=== PATIENT | male | born 1980 | race Caucasian/White ===

== ENCOUNTER 2025-02-21 19:39 | Emergency (ER) | payer MEDICARE, MEDICAID, SELFPAY ==
[2025-02-21 19:39] VITALS: BP 182/79; PULSE 83; RESP 18; TEMP 36.8; O2SAT 97; BMI 35.2
--- NOTE | 2025-02-21 20:06 | XR_ITS ---
PROCEDURE INFORMATION: Exam: XR Chest Exam date and time: 02/21/2025 8:45 PM Age: 45 years old Clinical indication: Shortness of breath; Additional info: Shortness of air/cp TECHNIQUE: Imaging protocol: Radiologic exam of the chest. Views: 1 view. COMPARISON: No relevant prior studies available. FINDINGS: Lungs: See Pleural spaces finding. Pleural spaces: Low lung volumes are present without pleural effusions or consolidations that project above the diaphragm. Heart/Mediastinum: Unremarkable. No cardiomegaly. Bones/joints: Unremarkable. IMPRESSION: No acute findings.
--- NOTE | 2025-02-21 20:07 | CT_ITS ---
PROCEDURE INFORMATION: Exam: CT Abdomen And Pelvis With Contrast Exam date and time: 02/21/2025 10:20 PM Age: 45 years old Clinical indication: Abdominal pain; Additional info: Abdominal pain, nausea, left sacral ulcer TECHNIQUE: Imaging protocol: Computed tomography of the abdomen and pelvis with contrast. Radiation optimization: All CT scans at this facility use at least one of these dose optimization techniques: automated exposure control; mA and/or kV adjustment per patient size (includes targeted exams where dose is matched to clinical indication); or iterative reconstruction. Contrast material: ISOVUE; Contrast volume: 75 ml; Contrast route: IV; COMPARISON: CR XR CHEST PORTABLE 02/21/2025 8:45 PM FINDINGS: Liver: Diffuse hypoattenuation of the liver compatible with mild hepatic steatosis. Gallbladder and biliary ducts: The gallbladder is contracted but otherwise unremarkable. Pancreas: Normal. No ductal dilation. Spleen: Multiple benign-appearing calcific densities of the spleen. Adrenal glands: Normal. No mass. Kidneys and ureters: Normal. No hydronephrosis. Stomach and bowel: Unremarkable. No obstruction. No mucosal thickening. Appendix: No evidence of appendicitis. Intraperitoneal space: Unremarkable. No free air. No significant fluid collection. Vasculature: Unremarkable. No abdominal aortic aneurysm. Lymph nodes: Unremarkable. No enlarged lymph nodes. Urinary bladder: Unremarkable as visualized. Reproductive: Unremarkable as visualized. Bones/joints: Postsurgical changes of the left hip compatible with IM nail and cannulated screw fixation of a healed femoral neck fracture. Soft tissues: Left gluteal soft tissue defect with postcontrast enhancement without rim enhancing collection to suggest abscess. IMPRESSION: Left gluteal soft tissue defect with postcontrast enhancement without rim enhancing collection to suggest abscess.
--- NOTE | 2025-02-21 20:09 | ED_ITS ---
<Statement entered by Lynne Mckeon DO - 02/23/25 12:39> I was consulted by the IRINA, and we discussed the complexity of problems being addressed. I approve the treatment and management plan for this patient's care in the emergency department, thus performing a substantial portion of the medical decision making. Lynne Mckeon DO Discharge Plan Disposition Patient Disposition: Home, Self-Care Condition: Good Prescriptions Prescriptions: New sulfamethoxazole-trimethoprim [Bactrim DS] 800-160 mg tablet 1 tab PO BID 7 Days Qty: 14 0RF amoxicillin-pot clavulanate 875-125 mg tablet 1 tab PO BID 7 Days Qty: 14 0RF Referrals Follow up/Referrals: Abiola You APRN [Primary Care Provider, Medical] - See instructions Activity Restrictions/Add. Instructions Additional Instructions/Restrictions: Take the antibiotics as prescribed. Follow-up with your PCP next week. Return to the emergency department for any worsening signs of infection including significant redness drainage or development of fevers. Your PCP can help you establish wound care outpatient. Clinical Impressions Clinical Impression: Sacral wound Print Language Print Language: Citizen Of [place] Discharge ED Provider: Lynne Mckeon General Adult HPI <CHALO Bella - Last Filed: 02/21/25 22:18> General Chief complaint: PAIN Stated complaint: pain Time Seen by Provider: 02/21/25 19:55 Mode of Arrival: Ambulatory Source of Information: Patient Description of Symptoms (Recalled from ER Triage Doc. by RN): patient presents to the ed for a large sacrum wound that he believes is making him septic. patient also complains of chest pain and abdominal pain. paitnet states he noticed the wound on how backside a month ago and popped it and thought that was the end of it but it is a very deep wound and draining. patient states his chest pain is right sided, doesnt radiate anywhere and rates it 8/10. his abdiminal pain is all over and rates it 8/10. patinet states hes diabetic and has prescribed meds but doesnt take any of them, only his prescribed methadone. History of Present Illness HPI narrative: 45-year-old male presents the emergency department accompanied by significant other for numerous symptomatology/complaints, patient states around 2 weeks ago , his left sacral acute decubitus ulcer that has been ongoing for the last 2 months, has had some worsening pain that radiates into his back and flank, not rating to his abdomen, endorses nausea and vomiting, endorses chest pain that started yesterday, and the abdominal pain started yesterday as well, patient admits to subjective fever chills, denies any overt shortness of breath, denies any constipation diarrhea urinary type symptomatology, denies any melena hematochezia hematemesis or hemoptysis, patient is a current a smoker, denies any alcohol use, prior history of intravenous drug use, 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 , yesterday patient tells me it was my birthday , patient is a very poor historian and so his family ember at the bedside, patient tells me he is a type II diabetic insulin-dependent but does not take any of his medications, 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 Initial triage vitals are unremarkable. Please note that above description of symptoms, in this electronic medical record under categorization of recalled from ER triage doctor by RN are reflective of an initial nursing assessment, however, is not reflective of my full history and physical exam that was personally taken and clarified. Consequentially, this preceding description of symptoms, which may include the patient's categorized chief complaint in the EMR, do not reflect my personal clinical impression, and the ultimate description of history of present illness and patient stated complaints should be deferred to this section of the note. Unless stated otherwise or congruent with this section of the note, additional signs, symptoms, or incongruence should be interpreted as inaccurate with my clinical impression. Onset (ago): week(s) Related Data Previous Rx's ?Medication ?Instructions ?Recorded amoxicillin 875 mg-potassium 1 tab PO BID 7 days #14 t abs 02/21/25 clavulanate 125 mg tablet sulfamethoxazole 800 1 tab PO BID 7 days #14 tabs 02/21/25 mg-trimethoprim 160 mg tablet (Bactrim DS) Allergies Allergy/AdvReac Type Severity Reaction Status Date / Time No Known Allergies Allergy Verified 02/21/25 20:22 PFSH <CHALO Bella - Last Filed: 02/21/25 22:18> [facility] Disclaimer: The information contained in this section may have been updated after the patient was seen, as this information can be updated by other users. Social History (Updated 02/21/25 @ 22:18 by CHALO Bella) Smoking Status: Current every day smoker alcohol intake: never current occupational status: other Travel in the last 8 weeks?: None Have you lived/traveled outside US in past 30 days?: No Contact w/someone who lives/traveled outside US past 30 days?: No Exposure to someone with infectious disease in past 14 days?: No Do you have a fever (greater than 100.4 F or 38 C)?: No Have you tested positive for COVID-19?: No Exposed to someone with COVID-19 in past 14 days?: No Do you have a sore throat?: No Do you have a cough?: No Do you have any weakness?: No Do you have any diarrhea?: No Are you experiencing any unusual bleeding?: No Do you have any muscle aches/pain?: No Do you have any abdominal pain?: No Are you experiencing loss of taste or smell?: No <CHALO Bella - Last Filed: 02/21/25 22:18> ROS Obtained: Yes All systems reviewed & no additional complaints except as documented Physical Exam <CHALO Bella - Last Filed: 02/21/25 22:18> General General appearance: alert and in no apparent distress Head Head exam: atraumatic and normocephalic Eye Eye exam: Present PERRL and EOMI ENT ENT exam: Present mucous membranes moist Neck Neck exam: Present normal inspection Chest Chest inspection: Present normal inspection and symmetric chest wall rise Respiratory Respiratory exam: Present normal lung sounds bilaterally; Absent respiratory distress Cardiovascular Cardiovascular exam: Present regular rate and normal rhythm Abdominal Exam Abdominal exam: Present soft and tenderness; Absent guarding, rebound or rigidity Abdominal tenderness: Present diffuse Extremities Exam Extremities exam: Present normal inspection Neurological Exam Neurological exam: Present alert and oriented X3 Psychiatric Psychiatric exam: Present normal affect Skin Skin exam: Present warm, dry and other (Patient has chronic diabetic wounds/ulcers of his bilateral pretibial regions with erythema some evidence of wound dehiscence but no obvious active drainage, patient has some erythema, some nonpurulent drainage of his sacral decubitus ulcer that is approximately, stage III or IV, 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 Screening: Per USPSTF and CDC recommendations, given the prevalence of disease in our region, it is our hospital?s policy to screen for HIV and viral Hepatitis for all patients aged 18 and over and those with ongoing risk factors. Aleksander Inquiry Pt receiving controlled substance: No Aleksander was queried for this patient: No Vital Signs: 02/21/25 19:39 02/21/25 20:48 02/21/25 21:00 Temperature 98.2 F Temperature Source Oral Pulse Rate 68 Pulse Rate [Right Radial] 83 Respiratory Rate 18 18 16 Blood Pressure Blood Pressure [Right Arm] 182/79 H Blood Pressure Mean Blood Pressure Mean [Right Arm] 113 Blood Pressure Source Blood Pressure Source [Right Arm] Automatic Cuff Blood Pressure Position Blood Pressure Position [Right Arm] Sitting 02 Sat by Pulse Oximetry 97 91 L Oxygen Delivery Method Room Air 02/21/25 21:00 02/21/25 23:33 Temperature 98.3 F Temperature Source Oral Pulse Rate 71 Pulse Rate [Right Radial] Respiratory Rate 17 Blood Pressure 147/69 H 128/93 H Blood Pressure [Right Arm] Blood Pressure Mean 84 Blood Pressure Mean [Right Arm] Blood Pressure Source Automatic Cuff Blood Pressure Source [Right Arm] Blood Pressure Position Sitting Blood Pressure Position [Right Arm] 02 Sat by Pulse Oximetry Oxygen Delivery Method Room Air Lab Data Lab results reviewed: Yes I reviewed the patient's lab results. Lab Results 02/21/25 20:57: WBC 6.4, RBC 4.41 L, Hgb 10.1 L, Hct 32.2 L, MCV 73.0 L, MCH 22.9 L, MCHC 31.4 L, RDW 14.2, Plt Count 366, MPV 9.8, Neut % (Auto) 71.3, Lymph % (Auto) 20.6, [place] % (Auto) 5.2, Eos % (Auto) 1.9, Baso % (Auto) 0.5, Neut # (Auto) 4.5, Lymph # (Auto) 1.3, [place] # (Auto) 0.3, Eos # (Auto) 0.1, Baso # (Auto) 0.0, Sodium 134 L, Potassium 4.5, Chloride 97 L, Carbon Dioxide 30, Anion Gap 11.5, BUN 20, Creatinine 1.30 H, Estimated Creat Clear 115, Estimated GFR 60, Est GFR ( Amer) 73, Glucose 338 H, Lactate 2.3 H, Calcium 8.4, Total Bilirubin 0.2, AST 23, ALT 20, Alkaline Phosphatase 173 H, Total Creatine Kinase 43 L, Troponin I < 0.01, NT-Pro-B Natriuret Pep 857 H, Total Protein 7.6, Albumin 3.8, Globulin 3.8 H, Albumin/Globulin Ratio 1.0 L 02/21/25 21:05: VBG pH 7.32, VBG pCO2 52.7 H, VBG pO2 45.7 H, VBG HCO3 26.8, VBG Total CO2 28.4 H, VBG O2 Saturation 80.4 H, VBG Base Excess 0.8, VBG Lactic Acid 2.5 H 02/21/25 20:57 02/21/25 20:57 Orders (Tests/Meds): ED MEDICATIONS Discontinued Medications Generic Name Dose Route Start Last Admin Trade Name Freq PRN Reason Stop Dose Admin Amoxicillin/Clavulanate Potassium 1 each 02/21/25 23:18 02/21/25 23:31 Amoxicillin/Clavulanate Potassium 875/125mg Tablet PO 02/21/25 23:19 1 each ONCE ONE Administration Iopamidol 75 ml 02/21/25 22:23 02/21/25 22:24 Iopamidol-370 (76%);100ml Bottle IV 02/21/25 22:24 75 ml ONCE ONE Administration Morphine Sulfate 2 mg 02/21/25 20:18 02/21/25 20:52 Morphine 2mg/Ml Syringe IV 02/21/25 20:19 2 mg ONCE ONE Administration Ondansetron HCl 4 mg 02/21/25 20:18 02/21/25 20:52 Ondansetron 4mg/2ml Vial IV 02/21/25 20:19 4 mg ONCE ONE Administration Sodium Chloride 10 ml 02/21/25 22:23 02/21/25 22:24 Sodium Chloride 0.9% 10ml Syr (Rad Only) IV 03/23/25 22:22 10 ml NEEDED PRN Administration Maintain IV Site Trimethoprim/Sulfamethoxazole 1 each 02/21/25 23:18 02/21/25 23:31 Sulfa/Trimethoprim 1 Tablet PO 02/21/25 23:19 1 each ONCE ONE Administration ORDERS Category Date Time Status CT abdomen pelvis w con Stat Cat Scan 02/21/25 20:07 Completed XR chest portable Stat Exams 02/21/25 20:06 Completed CK [Creatine Kinase] Stat Lab 02/21/25 20:57 Completed Complete Blood Count Auto Diff Stat Lab 02/21/25 20:57 Completed Comprehensive Metabolic Panel Stat Lab 02/21/25 20:57 Completed Lactic Acid Stat Lab 02/21/25 20:57 Completed NT Pro Brain Natriuretic Pep. Stat Lab 02/21/25 20:57 Completed Troponin I Stat Lab 02/21/25 20:57 Completed Blood Culture Stat Micro 02/21/25 21:10 Results VBG [Venous Blood Gas] Stat RT 02/21/25 21:05 Completed Medical Decision Narrative: 45-year-old male presents to the emergency department with sacral pain abdominal pain and chest pain, see HPI for detailed past medical history, differential diagnose include but not limited to, pressure ulcer, NSTI, cellulitis, osteomyelitis, colitis, fistula, ileitis, lymphedema, cardiac arrhythmia, electro disturbance, ACS, pneumonia, diabetic ulcer among others. . Will obtain basic laboratory studies, EKG, chest x-ray, CT ab pelvis with contrast, creatinine kinase level, blood cultures, lactic acid and proBNP troponin, will give 2 mg IV morphine and 4 mg IV Zofran for pain and nausea. CBC is notable for hemoglobin of 10.1, hematocrit 32.2, MCV is decreased 73 CMP is notable for creatinine 1.3, hyperglycemia at 338, lactic acidosis that is minimal at 2.3 ALP is elevated 173. I reviewed the patient's chest x-ray along with corresponding radiologic report, no acute findings. VBG is notable for pCO2 elevation at 52.7, venous lactic elevation at 2.5, bicarb within normal limits. Troponin is less than 0.01, I discussed this patient's case with the attending physician Dr. Mckeon, at shift change, she will be assuming the remainder of the patient's care/workup, disposition is pending CT abdomen pelvis radiology report and clinical reassessment. <Lynne Mckeon, DO - Last Filed: 02/23/25 12:39> Vital Signs: 02/21/25 19:39 02/21/25 20:48 02/21/25 21:00 Temperature 98.2 F Temperature Source Oral Pulse Rate 68 Pulse Rate [Right Radial] 83 Respiratory Rate 18 18 16 Blood Pressure Blood Pressure [Right Arm] 182/79 H Blood Pressure Mean Blood Pressure Mean [Right Arm] 113 Blood Pressure Source Blood Pressure Source [Right Arm] Automatic Cuff Blood Pressure Position Blood Pressure Position [Right Arm] Sitting 02 Sat by Pulse Oximetry 97 91 L Oxygen Delivery Method Room Air 02/21/25 21:00 02/21/25 23:33 Temperature 98.3 F Temperature Source Oral Pulse Rate 71 Pulse Rate [Right Radial] Respiratory Rate 17 Blood Pressure 147/69 H 128/93 H Blood Pressure [Right Arm] Blood Pressure Mean 84 Blood Pressure Mean [Right Arm] Blood Pressure Source Automatic Cuff Blood Pressure Source [Right Arm] Blood Pressure Position Sitting Blood Pressure Position [Right Arm] 02 Sat by Pulse Oximetry Oxygen Delivery Method Room Air Lab Data Lab Results 02/21/25 20:57: WBC 6.4, RBC 4.41 L, Hgb 10.1 L, Hct 32.2 L, MCV 73.0 L, MCH 22.9 L, MCHC 31.4 L, RDW 14.2, Plt Count 366, MPV 9.8, Neut % (Auto) 71.3, Lymph % (Auto) 20.6, [place] % (Auto) 5.2, Eos % (Auto) 1.9, Baso % (Auto) 0.5, Neut # (Auto) 4.5, Lymph # (Auto) 1.3, [place] # (Auto) 0.3, Eos # (Auto) 0.1, Baso # (Auto) 0.0, Sodium 134 L, Potassium 4.5, Chloride 97 L, Carbon Dioxide 30, Anion Gap 11.5, BUN 20, Creatinine 1.30 H, Estimated Creat Clear 115, Estimated GFR 60, Est GFR ( Amer) 73, Glucose 338 H, Lactate 2.3 H, Calcium 8.4, Total Bilirubin 0.2, AST 23, ALT 20, Alkaline Phosphatase 173 H, Total Creatine Kinase 43 L, Troponin I < 0.01, NT-Pro-B Natriuret Pep 857 H, Total Protein 7.6, Albumin 3.8, Globulin 3.8 H, Albumin/Globulin Ratio 1.0 L 02/21/25 21:05: VBG pH 7.32, VBG pCO2 52.7 H, VBG pO2 45.7 H, VBG HCO3 26.8, VBG Total CO2 28.4 H, VBG O2 Saturation 80.4 H, VBG Base Excess 0.8, VBG Lactic Acid 2.5 H Orders (Tests/Meds): ED MEDICATIONS Discontinued Medications Generic Name Dose Route Start Last Admin Trade Name Freq PRN Reason Stop Dose Admin Amoxicillin/Clavulanate Potassium 1 each 02/21/25 23:18 02/21/25 23:31 Amoxicillin/Clavulanate Potassium 875/125mg Tablet PO 02/21/25 23:19 1 each ONCE ONE Administration Iopamidol 75 ml 02/21/25 22:23 02/21/25 22:24 Iopamidol-370 (76%);100ml Bottle IV 02/21/25 22:24 75 ml ONCE ONE Administration Morphine Sulfate 2 mg 02/21/25 20:18 02/21/25 20:52 Morphine 2mg/Ml Syringe IV 02/21/25 20:19 2 mg ONCE ONE Administration Ondansetron HCl 4 mg 02/21/25 20:18 02/21/25 20:52 Ondansetron 4mg/2ml Vial IV 02/21/25 20:19 4 mg ONCE ONE Administration Sodium Chloride 10 ml 02/21/25 22:23 02/21/25 22:24 Sodium Chloride 0.9% 10ml Syr (Rad Only) IV 03/23/25 22:22 10 ml NEEDED PRN Administration Maintain IV Site Trimethoprim/Sulfamethoxazole 1 each 02/21/25 23:18 02/21/25 23:31 Sulfa/Trimethoprim 1 Tablet PO 02/21/25 23:19 1 each ONCE ONE Administration ORDERS Category Date Time Status CT abdomen pelvis w con Stat Cat Scan 02/21/25 20:07 Completed XR chest portable Stat Exams 02/21/25 20:06 Completed CK [Creatine Kinase] Stat Lab 02/21/25 20:57 Completed Complete Blood Count Auto Diff Stat Lab 02/21/25 20:57 Completed Comprehensive Metabolic Panel Stat Lab 02/21/25 20:57 Completed Lactic Acid Stat Lab 02/21/25 20:57 Completed NT Pro Brain Natriuretic Pep. Stat Lab 02/21/25 20:57 Completed Troponin I Stat Lab 02/21/25 20:57 Completed Blood Culture Stat Micro 02/21/25 21:10 Results VBG [Venous Blood Gas] Stat RT 02/21/25 21:05 Completed Medical Decision Narrative: 45-year-old male presents to the emergency department with sacral pain abdominal pain and chest pain, see HPI for detailed past medical history, differential diagnose include but not limited to, pressure ulcer, NSTI, cellulitis, osteomyelitis, colitis, fistula, ileitis, lymphedema, cardiac arrhythmia, electro disturbance, ACS, pneumonia, diabetic ulcer among others. Will obtain basic laboratory studies, EKG, chest x-ray, CT ab pelvis with contrast, creatinine kinase level, blood cultures, lactic acid and proBNP troponin, will give 2 mg IV morphine and 4 mg IV Zofran for pain and nausea. CBC is notable for hemoglobin of 10.1, hematocrit 32.2, MCV is decreased 73 CMP is notable for creatinine 1.3, hyperglycemia at 338, lactic acidosis that is minimal at 2.3 ALP is elevated 173. I reviewed the patient's chest x-ray along with corresponding radiologic report, no acute findings. VBG is notable for pCO2 elevation at 52.7, venous lactic elevation at 2.5, bicarb within normal limits. Troponin is less than 0.01, I discussed this patient's case with the attending physician Dr. Mckeon, at shift change, she will be assuming the remainder of the patient's care/workup, disposition is pending CT abdomen pelvis radiology report and clinical reassessment. Lynne Mckeon, DO I assumed care of the patient at 2200. CT scan was reviewed and interpreted by myself: Showed left gluteal soft tissue defect with some postcontrast enhancement without evidence of rim-enhancing fluid collection to suggest abscess. At this time, patient did not appear to be septic, patient had a normal white count minimally elevated lactate. At this time I did not see any bony involvement to suggest osteomyelitis. I feel the patient is appropriate for outpatient management with antibiotics. Patient was advised to follow-up with his primary care provider and return to the emergency department for any acute or worsening symptoms. Patient will likely need outpatient wound management. Return precautions were discussed and patient was otherwise discharged home in stable condition. Critical Care <CHALO Bella - Last Filed: 02/21/25 22:18> Critical Care Time Critical Care Time: No
--- OUTSIDE RECORDS SUMMARY | 2025-02-21 20:10 | XMS_ITS | Clinical Summary ---
Author Organization [facility] Address [address] [place] [address] Phone Care Team Providers Care Automation Clerk Name Role Phone Chelsie Carmona Unavailable Unavailable Conditions or Problems No information available. Medications No information available. Medications Administered No information available. Allergies, Adverse Reactions, Alerts No information available. Results No information available. Plan of Care No information available. Procedures No information available. Vital Signs No information available. Immunizations No information available. Advance Directives No information available.
--- OUTSIDE RECORDS SUMMARY | 2025-02-21 20:11 | XMS_ITS | Data Portability ---
Author Organization [facility] Address [address] [place] [address] Assessment Encounter Date Assessment Date Assessment LastModified by Organization Details LastModified Time 06/27/2022 06/27/2022 His legs are affected by chronic venous stasis ulcers and appears with some mild cellulitis bilaterally. Will prescribe the Docy, I recommended he see his PCP here in 3 days as scheduled and he states he sees a provider in [place] for PCP and will see her next week. [email or web address] Not available 06/27/2022 12:17:42 Plan of Treatment Reminders Order Date Submit Date Provider Last Modified By Organization Details Last Modified Time Details Appointments None recorded. Lab HbA1c (hemoglobin A1c), blood 2024 025 [email or web address] [facility], [address] [place] [address], [phone], 5 16:00:29 lipid panel, serum 2024 025 [facility], [address] [place] [address], [id number], 5 11:07:55 CBC w/ auto diff 2024 025 [place] [facility], [address] [place] [address], [id number], 5 11:07:54 CMP, serum or plasma 2024 025 [facility] [address] [place], [address], 5 11:07:54 TSH + free T4, serum 2024 025 [facility] [address] [place], [address], 5 11:07:53 vitamin D, 25-hydroxy, total, serum 2024 025 [facility] [address] [place], [address], 5 11:07:55 HbA1c (hemoglobin A1c), blood [address], [address], 18:46:00 HbA1c (hemoglobin A1c), blood [address], [address] [place] [address], [address], 17:00:31 Referral general surgeon referral 2021 022 [email or web address] 3 Julio Brush MD, [address], [address], [place], [address], 3 07:47:54 Procedures None recorded. Surgeries None recorded. Imaging None recorded. Medication Orders imiquimod 5 % topical cream packet [address] [facility], [address] [place] [address], [id number], 5 15:58:18 cephalexin 500 mg capsule [address] [facility], [address] [place] [address], [id number], 5 05:02:37 mupirocin 2 % topical ointment 2024 025 [place] [facility], [address] [place] [address], [id number], 17:15:09 sildenafil 100 mg tablet [address] [place] [address] [facility], [address] [place] [address], [id number], 10:03:06 mirtazapine 15 mg tablet [address] [place] [address] [facility], [address] [place] [address], [id number], 11:18:27 simvastatin 40 mg tablet [address] [place] [address] [facility], [address] [place] [address], [id number], 10:41:36 lisinopril 20 mg-hydrochl orothiazide 25 mg tablet [address] [place] [address] [facility], [address] [place] [address], [id number], 10:41:34 famotidine 40 mg tablet [address] [place] [address] [facility], [address] [place] [address], [id number], 11:18:29 pantoprazol e 40 mg tablet,juani yed release 2024 025 [place] [facility], [address] [place] [address], [id number], 11:18:30 Farxiga 10 mg tablet 2024 025 [place] [facility], [address] [place] [address], [id number], 11:18:28 Januvia 100 mg tablet 2024 [place] [facility], [address] [place] [address], [id number], 10:13:04 Lantus Solostar U-100 Insulin 100 unit/mL (3 mL) subcutaneou s pen [address] [place] [address] [facility], [address] [place] [address], [id number], 15:05:00 Novolog FlexPen U-100 Insulin aspart 100 unit/mL (3 mL) subcutaneou s [address] [place] [address] [facility], [address] [place] [address], [id number], 15:40:23 Ozempic 0.25 mg or 0.5 mg (2 mg/3 mL) subcutaneou s pen injector 2024 [place] [facility], [address] [place] [address], [id number], 15:05:00 doxycycline monohydrate 100 mg capsule 2022 023 [email or web address] 1 [facility], [address] [place] [address], [id number], 10:46:46 dicyclomine 20 mg tablet 2021 022 [facility], [address] [place] [address], [id number], 16:57:36 lisinopril 10 mg tablet 2021 022 twiedemer 1 [facility], [address] [place] [address], [id number], 10:47:58 mirtazapine 30 mg tablet 2021 [email or web address] 1 [facility], [address] [place] [address], [id number], 10:48:52 Bactrim DS 800 mg-160 mg tablet 2021 [email or web address] 1 [facility], [address] [place] [address], [id number], 10:50:05 Admelog SoloStar U-100 Insulin lispro 100 unit/mL subcutaneou s pen 2021 twiedemer 1 [facility], [address] [place] [address], [id number], 15:56:45 Basaglar KwikPen U-100 Insulin 100 unit/mL (3 mL) subcutaneou s 2021 [place] [facility], [address] [place] [address], [id number], 15:21:23 Januvia 100 mg tablet 2021 [place] [facility], [address] [place] [address], [id number], 15:21:23 omeprazole 20 mg capsule,del ayed release 2021 [email or web address] [facility], [address] [place] [address], [id number], 17:10:42 tadalafil 5 mg tablet 2021 [facility], [address] [place] [address], [id number], 17:13:38 Cymbalta 60 mg capsule,del ayed release 2021 022 twiedemer 1 [facility], [address] [place] [address], [id number], 10:46:58 Patient TargetsNo targets recorded. Patient InstructionsNo instructions recorded. Reason for Referral General Surgeon Referral for Infected ulcer of skin Referring Physician: Abiola You, Family Medicine, Encounter Date: 04/03/2022 Results Created Date Observation Date Name Description Value Unit Range Abnormal Flag Note LastModifiedBy Organization Detail LastModifiedTime 04/03/2004/03/2022 HbA1c (hemo globi n A1c), blood HbA1c 10.8 Not Available [address], [place], [address], 04/03/2022 13:39:50 05/16/19 25 05/17/2024 TSH+F REE T4 TSH 1.770 uIU/m L 0.450- 4.500 normal Not Available [facility] ([facility]) [address] [place], [address], 05/17/2024 11:07:53 05/16/1905/17/2024 TSH+F REE T4 T4,free(dire ct) 1.27 NG/dL 0.82-1 .77 normal Not Available [facility] ([facility]) [address] [place], [address], 05/17/2024 11:07:53 05/16/19 25 05/17/2024 CBC WITH DIFFE RENTI AL/PL ATELE T WBC 9.3 x10e3 /uL 3.4-10 .8 normal Not Available [facility] ([facility]) [address] [place], [address], 05/17/2024 11:07:54 05/16/19 25 05/17/2024 CBC WITH DIFFE RENTI AL/PL ATELE T RBC 5.53 x10e6 /uL 4.14-5 .80 normal Not Available [facility] ([facility]) [address] [facility] [place], [address], 05/17/2024 11:07:54 05/16/19 25 05/17/2024 CBC WITH DIFFE RENTI AL/PL ATELE T hemoglobin 13.4 g/dL 13.0-1 7.7 normal Not Available [facility] ([facility]) [address] [facility] [place], [address], 05/17/2024 11:07:54 05/16/19 25 05/17/2024 CBC WITH DIFFE RENTI AL/PL ATELE T hematocrit 44.6 % 37.5-5 1.0 normal Not Available [facility] ([facility]) [address] [facility], [place], [address], 05/17/2024 11:07:54 05/16/19 25 05/17/2024 CBC WITH DIFFE RENTI AL/PL ATELE T MCV 81 fL 79-97 normal Not Available [facility] ([facility]) [address] [place], [address], 05/17/2024 11:07:54 05/16/19 25 05/17/2024 CBC WITH DIFFE RENTI AL/PL ATELE T MCH 24.2 pg 26.6-3 3.0 below low normal Not Available [facility] ([facility]) [address] [place], [address], 05/17/2024 11:07:54 05/16/1905/17/2024 CBC WITH DIFFE RENTI AL/PL ATELE T MCHC 30.0 g/dL 31.5-3 5.7 below low normal Not Available [facility] ([facility]) [address] [place], [address], 05/17/2024 11:07:54 05/16/19 25 05/17/2024 CBC WITH DIFFE RENTI AL/PL ATELE T RDW 13.9 % 11.6-1 5.4 Not Available [facility] ([facility]) [address] [facility], [place], [address], 05/17/2024 11:07:54 05/16/19 25 05/17/2024 CBC WITH DIFFE RENTI AL/PL ATELE T platelets 295 x10e3 /uL 150-45 0 normal Not Available [facility] ([facility]) [address] [facility], [place], [address], 05/17/2024 11:07:54 05/16/19 25 05/17/2024 CBC WITH DIFFE RENTI AL/PL ATELE T neutrophils 71 % not estab. normal Not Available [facility] ([facility]) [address] [facility], [place], [address], 05/17/2024 11:07:54 05/16/19 25 05/17/2024 CBC WITH DIFFE RENTI AL/PL ATELE T lymphs 20 % not estab. normal Not Available [facility] ([facility]) [address] [facility], [place], [address], 05/17/2024 11:07:54 05/16/19 25 05/17/2024 CBC WITH DIFFE RENTI AL/PL ATELE T monocytes 5 % not estab. normal Not Available [facility] ([facility]) [address] [facility], [place], [address], 05/17/2024 11:07:54 05/16/19 25 05/17/2024 CBC WITH DIFFE RENTI AL/PL ATELE T eos 2 % not estab. normal Not Available [facility] ([facility]) [address] [facility], [place], [address], 05/17/2024 11:07:54 05/16/19 25 05/17/2024 CBC WITH DIFFE RENTI AL/PL ATELE T basos 1 % not estab. normal Not Available [facility] ([facility]) [address] [facility], [place], [address], 05/17/2024 11:07:54 05/16/19 25 05/17/2024 CBC WITH DIFFE RENTI AL/PL ATELE T immature cells GREEN END MAN Not Available [facility] ([facility]) [address] [place], [address], 05/17/2024 11:07:54 05/16/19 25 05/17/2024 CBC WITH DIFFE RENTI AL/PL ATELE T neutrophils (absolute) 6.7 x10e3 /uL 1.4-7. 0 normal Not Available [facility] ([facility]) [address] [place], [address], 05/17/2024 11:07:54 05/16/19 25 05/17/2024 CBC WITH DIFFE RENTI AL/PL ATELE T lymphs (absolute) 1.8 x10e3 /uL 0.7-3. 1 normal Not Available [facility] ([facility]) [address] [place], [address], 05/17/2024 11:07:54 05/16/19 25 05/17/2024 CBC WITH DIFFE RENTI AL/PL ATELE T monocytes(ab solute) 0.5 x10e3 /uL 0.1-0. 9 normal Not Available [facility] ([facility]) [address] [place], [address], 05/17/2024 11:07:54 05/16/19 25 05/17/2024 CBC WITH DIFFE RENTI AL/PL ATELE T eos (absolute) 0.2 x10e3 /uL 0.0-0. 4 normal Not Available [facility] ([facility]) [address] [place], [address], 05/17/2024 11:07:54 05/16/19 25 05/17/2024 CBC WITH DIFFE RENTI AL/PL ATELE T baso (absolute) 0.1 x10e3 /uL 0.0-0. 2 normal Not Available [facility] ([facility]) [address] [facility], [place], [address], 05/17/2024 11:07:54 05/16/19 25 05/17/2024 CBC WITH DIFFE RENTI AL/PL ATELE T immature granulocytes 1 % not estab. Not Available [facility] ([facility]) [address] [facility], [place], [address], 05/17/2024 11:07:54 05/16/19 25 05/17/2024 CBC WITH DIFFE RENTI AL/PL ATELE T immature grans (abs) 0.1 x10e3 /uL 0.0-0. 1 Not Available [facility] ([facility]) [address] [facility], [place], [address], 05/17/2024 11:07:54 05/16/19 25 05/17/2024 CBC WITH DIFFE RENTI AL/PL ATELE T NRBC GREEN [employer] MAN Not Available [facility] ([facility]) [address] [facility], [place], [address], 05/17/2024 11:07:54 05/16/19 25 05/17/2024 CBC WITH DIFFE RENTI AL/PL ATELE T hematology comments: GREEN END MAN Not Available [facility] ([facility]) [address] [facility], [place], [address], 05/17/2024 11:07:54 05/16/19 25 05/17/2024 COMP. METAB OLIC PANEL (14) glucose 410 mg/dL 70-99 above high normal Not Available [facility] ([facility]) [address] [facility], [place], [address], 05/17/2024 11:07:54 05/16/19 25 05/17/2024 COMP. METAB OLIC PANEL (14) BUN 23 mg/dL 6-24 normal Not Available [facility] ([facility]) [address] [facility], [place], [address], 05/17/2024 11:07:54 05/16/19 25 05/17/2024 COMP. METAB OLIC PANEL (14) creatinine 1.18 mg/dL 0.76-1 .27 normal Not Available [facility] ([facility]) [address] [facility] [place], [address], 05/17/2024 11:07:54 05/16/19 25 05/17/2024 COMP. METAB OLIC PANEL (14) eGFR 79 mL/mi n/1.7 3 >59 normal Not Available [facility] ([facility]) [address] [facility] [place], [address], 05/17/2024 11:07:54 05/16/19 25 05/17/2024 COMP. METAB OLIC PANEL (14) BUN/creatini ne ratio 19 9-20 normal Not Available [facility] ([facility]) [address] [facility] [place], [address], 05/17/2024 11:07:54 05/16/19 25 05/17/2024 COMP. METAB OLIC PANEL (14) sodium 133 mmol/ L 134-14 4 below low normal Not Available [facility] ([facility]) [address] [facility] [place], [address], 05/17/2024 11:07:54 05/16/19 25 05/17/2024 COMP. METAB OLIC PANEL (14) potassium 5.5 mmol/ L 3.5-5. 2 above high normal Not Available [facility] ([facility]) [address] [facility] [place], [address], 05/17/2024 11:07:54 05/16/19 25 05/17/2024 COMP. METAB OLIC PANEL (14) chloride 96 mmol/ L 96-106 normal Not Available [facility] ([facility]) [address] [facility] [place], [address], 05/17/2024 11:07:54 05/16/19 25 05/17/2024 COMP. METAB OLIC PANEL (14) carbon dioxide, total 19 mmol/ L 20-29 below low normal Not Available [facility] ([facility]) [address] [place], [address], 05/17/2024 11:07:54 05/16/19 25 05/17/2024 COMP. METAB OLIC PANEL (14) calcium 9.3 mg/dL 8.7-10 .2 normal Not Available [facility] ([facility]) [address] [place], [address], 05/17/2024 11:07:54 05/16/19 25 05/17/2024 COMP. METAB OLIC PANEL (14) protein, total 7.7 g/dL 6.0-8. 5 normal Not Available [facility] ([facility]) [address] [place], [address], 05/17/2024 11:07:54 05/16/19 25 05/17/2024 COMP. METAB OLIC PANEL (14) albumin 3.7 g/dL 4.1-5. 1 below low normal Not Available [facility] ([facility]) [address] [place], [address], 05/17/2024 11:07:54 05/16/19 25 05/17/2024 COMP. METAB OLIC PANEL (14) globulin, total 4.0 g/dL 1.5-4. 5 Not Available [facility] ([facility]) [address] [place], [address], 05/17/2024 11:07:54 05/16/19 25 05/17/2024 COMP. METAB OLIC PANEL (14) bilirubin, total <0.2 mg/dL 0.0-1. 2 Not Available [facility] ([facility]) [address] [place], [address], 05/17/2024 11:07:54 05/16/19 25 05/17/2024 COMP. METAB OLIC PANEL (14) alkaline phosphatase 165 IU/L 44-121 above high normal Not Available [facility] ([facility]) [address] [facility] [place], [address], 05/17/2024 11:07:54 05/16/19 25 05/17/2024 COMP. METAB OLIC PANEL (14) AST (SGOT) 34 IU/L 0-40 normal Not Available [facility] ([facility]) [address] [facility] [place], [address], 05/17/2024 11:07:54 05/16/19 25 05/17/2024 COMP. METAB OLIC PANEL (14) ALT (SGPT) 34 IU/L 0-44 normal Not Available [facility] ([facility]) [address] [facility] [place], [address], 05/17/2024 11:07:54 05/16/19 25 05/17/2024 LIPID PANEL cholesterol, total 222 mg/dL 100-19 9 above high normal Not Available [facility] ([facility]) [address] [facility] [place], [address], 05/17/2024 11:07:55 05/16/19 25 05/17/2024 LIPID PANEL triglyceride s 356 mg/dL 0-149 above high normal Not Available [facility] ([facility]) [address] [facility] [place], [address], 05/17/2024 11:07:55 05/16/19 25 05/17/2024 LIPID PANEL HDL cholesterol 38 mg/dL >39 below low normal Not Available [facility] ([facility]) [address] [facility] [place], [address], 05/17/2024 11:07:55 05/16/19 25 05/17/2024 LIPID PANEL VLDL cholesterol portillo 63 mg/dL 5-40 above high normal Not Available [facility] ([facility]) [address] [facility] [place], [address], 05/17/2024 11:07:55 05/16/19 25 05/17/2024 LIPID PANEL LDL chol calc ([facility]) 121 mg/dL 0-99 above high normal Not Available [facility] ([facility]) [address] [facility], [place], [address], 05/17/2024 11:07:55 05/16/19 25 05/17/2024 LIPID PANEL LDL calc comment: GREEN END MAN Not Available [facility] ([facility]) [address] [facility], [place], [address], 05/17/2024 11:07:55 05/16/19 25 05/17/2024 VITAM IN D, 25-HY DROXY vitamin D, 25-hydroxy 11.7 NG/mL 30.0-1 00.0 below low normal Vitam in D defic iency has been defin ed by the Insti tute of Medic ine and an Endoc rine Socie ty pract ice guide line as a level of serum 25-OH vitam in D less than 20 ng/mL (1,2) . The Endoc rine Socie ty went on to furth er defin e vitam in D insuf ficie ncy as a level betwe en 21 and 29 ng/mL (2). 1. IOM (Inst itute of Medic ine). 2010. Dieta ry refer ence intak es for calci um and D. Glenn issa [place]: [facility] . 2. Manish richter MF, Morteza moran [place], Mekhi off-F errar i QUINTERO, et al. Evalu ation , treat ment, and preve ntion of vitam in D defic iency : an Endoc rine Socie ty clini portillo pract ice guide line. JCEM. 2010; 96(7) :1911 -30. Not Available [facility] ([facility]) [address] [facility], [place], [address], 05/17/2024 11:07:55 05/16/19 25 05/16/2024 HbA1c (hemo globi n A1c), blood HbA1c 12.7 Not Available [address], [address], 05/16/2024 10:53:07 11/22/1911/21/2024 HbA1c (hemo globi n A1c), blood HbA1c >15.0 Not Available [address], [address], 11/21/2024 15:59:29 Result Notes None recorded. Problems Name Problem SNOMED Code Status Onset Date Resolution Date Notes Provider Name and Address Organization Details Recorded Time Uncontro lled type 2 diabetes mellitus 924320772 Active 2018 Rafiq juarez [facility]. 15:59:25 Ulcer of mckeon 534629391 Completed 201803/25/2022 MAYNOR juarez [facility] 2 07:50:30 Body mass index 25-29 - overweig ht 902455916 Completed 201803/25/2022 Problem Code: Z68.28; Problem Code Type: ICD-10; MAYNOR juarez [employer] [employer] [facility] [employer] 2 07:50:30 Body mass index 20-24 - normal 563749908 Completed 201803/25/2022 MAYNOR juarez [employer] [employer] [facility] 2 07:50:30 Nicotine dependen ce 30023635 Active 2018 Problem Code: F17.200; Problem Code Type: ICD-10; Not Available [facility] 2 22:46:01 Body mass index 30+ - obesity 839364853 Completed 201803/25/2022 Problem Code: Z68.30; Problem Code Type: ICD-10; MAYNOR juarez [employer] [facility] [employer] 2 07:50:30 Neuropat hy due to type 1 diabetes mellitus 522360330 Completed 201809/24/2020 Problem Code: E10.40; Problem Code Type: ICD-10; Not Available [facility] 2 22:46:01 Gouty arthriti s of ankle and/or foot 083412194 Active 2018 Problem Code: M10.072; Problem Code Type: ICD-10; Not Available [facility] 2 22:46:02 Pain in limb 00526599 Completed 201803/25/2022 MAYNOR [facility]ENDEZNER [employer] [employer] 2 07:51:00 Pain in left foot 32205209170 9107 Completed 201803/25/2022 Problem Code: M79.672; Problem Code Type: ICD-10; MAYNOR [facility] [employer] 2 07:50:30 Abscess of foot, except toe 83031076 Completed 201903/25/2022 MAYNORTHALIA [facility]ENDEZNER [employer] [employer] 2 07:50:30 Acute osteomye litis of ankle and/or foot 626447433 Completed 201903/25/2022 Problem Code: M86.172; Problem Code Type: ICD-10; MAYNOR [facility]NER [employer] 2 07:51:00 Methicil nicholas resistan t Staphylo coccus aureus infectio n 089110921 Completed 201903/25/2022 Problem Code: A49.02; Problem Code Type: ICD-10; MAYNOR [facility]ENDEZNER [employer] 2 07:51:00 Anemia 294323343 Active 2019 Problem Code: D64.9; Problem Code Type: ICD-10; Not Available [facility] 2 22:46:01 Hyperten sive disorder 24525783 Active 2019 Problem Code: I10; Problem Code Type: ICD-10; Not Available [facility] 2 22:46:01 Tachycar ion 9795235 Active 2019 Not Available [facility] 2 22:46:02 Acute pharyngi tis 708344648 Completed 201909/24/2020 Not Available [facility] 2 22:46:01 Non-supp urative otitis media 634564673 Completed 201903/25/2022 MAYNORTHALIA juarez, [employer] 2 07:50:30 Otogenic otalgia 42637655 Completed 201903/25/2022 [facility] 2 07:50:31 Harmful pattern of use of opioid 4458399 Active 2020 Problem Code: F11.10; Problem Code Type: ICD-10; Not Available [facility] 2 22:46:01 Cellulit is 370960998 Completed 202003/25/2022 Problem Code: L03.90; Problem Code Type: ICD-10; [facility] [employer] 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 2 07:50:30 Neuropat hy 700596554 Active 2020 Problem Code: G62.9; Problem Code Type: ICD-10; Not Available [facility] 2 22:46:01 Secondar y erectile dysfunct ion 699199545 Active 2020 Problem Code: N52.1; Problem Code Type: ICD-10; Not Available [facility] 2 22:46:04 Cough 69030633 Completed 202003/25/2022 Problem Code: R05; Problem Code Type: ICD-10; MAYNOR juarez, [facility] 2 07:51:00 Abnormal sputum 456715080 Completed 202003/25/2022 Problem Code: R09.3; Problem Code Type: ICD-10; MAYNOR juarez, [employer] 2 07:51:00 Localize d infectio n of subcutan eous tissue 967190488 Completed 202003/25/2022 MAYNOR juarez, [facility]. 2 07:50:30 Noncompl iance with treatmen t 3726001 Active 2021 Problem Code: Z91.19; Problem Code Type: ICD-10; Not Available [facility] 2 22:46:04 Type 2 diabetes mellitus without complica tion 367355121 Active 2024 Rafiq juarez, [facility]. 5 10:53:04 Hyperlip idemia 64393487 Active 2024 Abiola You APRN [address] [place] [address], [address] , [employer] 5 18:09:31 Gastroes ophageal reflux disease without esophagi tis 717553396 Active 2024 Abiola You APRN [address] [place] [address], [address] , [employer] 5 18:09:37 [facility] hyperten blue 56916510 Active 2024 Abiola You APRN [address] [place] [address], [address] , [facility] 5 18:09:39 Primary insomnia 9344618 Active 2024 Abiola You APRN [address] [place] [address], [address] , [employer] 5 18:09:42 Erectile dysfunct ion 389940965 Active 2024 Abiola You, [employer] [address] [facility], [place], [address] , [employer] 18:09:43 Fatigue 81883357 Active 2024 Rafiq juarez, [employer] 10:19:51 Hypergly cemia 79047068 Active 2024 Rafiq juarez, [employer] 10:19:51 Cellulit is of left lower limb 86492992862 117207 Active 2024 Rafiq juarez, [employer] 16:42:35 Genital warts 628318815 Active 2024 Rafiq juarez, [employer] 12:15:11 Notes:Some problems listed i n Document: #[id number] could not be added to this patient's chart. Please review this document and add these problems to the patient's chart manually as needed. Problem Notes None recorded. Procedures Surgical History Date Name Laterality Status Provider Name and Address Organization Details Recorded Time Other completed MAYNORTHALIA BLANCO [employer] 04/03/2022 13:37:42 Imaging Results None recorded. Procedure Notes None recorded. Medical Equipment None Reported. Allergies Allergen ID Allergen Name Allergen Category Reaction Reaction Severity Criticality Documentation Date Start Date Code Code System Note Provider Name and Address Organization Details Recorded Time 67557 Product containin g penicilli n (product) medicatio n rash moderate Not available 12/24/2021 69518 8001 SNOMED MAYNOR BLANCO [employer] 07:49:53 Medications Name Sig Start Date Stop Date Status Note LastModified by Organization Details LastModified Time clonidine HCl 0.1 mg tablet 04/03 completed hasnt had for months. sbp today 120 Not Available Not Available Not Available gabapentin 600 mg tablet TAKE 1 TABLET 3 TIMES EACH DAY NEEDED FOR NERVE PAIN 11/21 completed Not Available Not Available Not Available clindamyci n HCl 300 mg capsule take 1 capsule (300 mg) by oral route every 6 hours 02/07 completed Not Available Not Available Not Available lisinopril 20 mg-hydroch lorothiazi de 12.5 mg tablet TAKE 1 TABLET 1 TIME EACH DAY 05/16 completed Not Available Not Available Not Available valacyclov ir 1 gram tablet take 1 tablet (1,000 mg) by oral route 2 times per day x7 04/03 completed Not Available Not Available Not Available lisinopril 20 mg tablet TAKE 1 TABLET 1 TIME EACH DAY 05/16 completed Not Available Not Available Not Available ondansetro n HCl 4 mg tablet 05/16 completed Not Available Not Available Not Available famotidine 40 mg tablet TAKE 1 TABLET 1 TIME EACH DAY active Not Available Not Available No t Available gabapentin 400 mg capsule TAKE 1 CAPSULE 4 TIMES EACH DAY NEEDED FOR NEUROPAT HY 05/16 completed Not Available Not Available Not Available permethrin 5 % topical cream 04/03 completed Not Available Not Available Not Available Zithromax 250 mg tablet take 2 tablets (500 mg) by oral route once daily for 1 day then 1 tablet (250 mg) by oral route once daily for 4 days 01/05 completed Not Available Not Available Not Available amlodipine 5 mg tablet TAKE 1 TABLET 1 TIME EACH DAY FOR HIGH BLOOD PRESSURE 05/16 completed Not Available Not Available Not Available sulfametho xazole 800 mg-trimeth oprim 160 mg tablet TAKE 1 TABLET EVERY 12 HOURS FOR 10 DAYS 05/16 completed Not Available Not Available Not Available omeprazole 40 mg capsule,de layed release TAKE ONE CAPSULE BY MOUTH DAILY BEFORE MEAL FOR STOMACH 04/03 completed Not Available Not Available Not Available sildenafil 100 mg tablet TAKE 1 TABLET 1 TIME EACH DAY, ABOUT 1 HOUR BEFORE SEXUAL ACTIVITY , NEEDED, 2024 active Not Available Not Available Not Avai lable simvastati n 40 mg tablet TAKE 1 TABLET 1 TIME EACH DAY active Not Available Not Available No t Available ondansetro n 8 mg disintegra ting tablet PLACE 1 TABLET UNDER THE TONGUE AND ALLOW TO DISSOLVE EVERY 8 HOURS NEEDED FOR NAUSEA 05/16 completed Not Available Not Available Not Available oxycodone- acetaminop hen 5 mg-325 mg tablet 04/03 completed Not Available Not Available Not Available lancets test blood glucose TID 04/03 completed Not Available Not Available Not Available amoxicilli n 875 mg tablet take 1 tablet (875 mg) by oral route every 12 hours 03/28 completed Not Available Not Available Not Available blood-gluc ose meter kit test blood sugar TID 04/03 completed Not Available Not Available Not Available gabapentin 800 mg tablet TAKE 1 TABLET 3 TIMES EACH DAY NEEDED FOR NERVE PAIN 05/16 completed Not Available Not Available Not Available dicyclomin e 20 mg tablet TAKE 1 TABLET 3 TIMES EACH DAY 05/16 completed Not Available Not Available Not Available OneTouch Ultra Test strips test blood sugar TID active Not Available Not Available No t Available imiquimod 5 % topical cream packet APPLY TO THE AFFECTED AREA(S) BY TOPICAL ROUTE 5 TIMES PER WEEK 2024 active Not Available Not Available Not Avai lable amlodipine 10 mg tablet take 1 tablet (10 mg) by oral route once daily 04/03 completed hasnt had for months sbp today 120 Not Available Not Available Not Available doxycyclin e monohydrat e 100 mg capsule TAKE 1 CAPSULE 2 TIMES EACH DAY FOR 10 DAYS 05/16 completed Not Available Not Available Not Available cephalexin 500 mg capsule Take 1 capsule twice a day by oral route for 10 days. 12/08 completed Not Available Not Available Not Available pantoprazo le 40 mg tablet,del ayed release TAKE 1 TABLET 1 TIME EACH DAY active Not Available Not Available No t Available cyanocobal iniguez (vit B-12) 1,000 mcg/mL injection solution INJECT 1 ML INTO A MUSCLE 1 TIME EACH WEEK 11/21 completed Not Available Not Available Not Available mirtazapin e 30 mg tablet TAKE 1 TABLET 1 TIME EACH DAY AT BEDTIME 05/16 completed Not Available Not Available Not Available lisinopril 10 mg tablet TAKE 1 TABLET 1 TIME EACH DAY 05/16 completed Not Available Not Available Not Available promethazi ne 25 mg tablet TAKE 1 TABLET 4 TIMES EACH DAY NEEDED FOR NAUSEA 01/27 /2025 completed Not Available Not Available Not Available Humulin 70/30 U-100 Insulin 100 unit/mL subcutaneo us suspension inject by subcutan eous route as per insulin protocol 120 units BID 01/25 completed Not Available Not Available Not Available gabapentin 300 mg capsule TAKE 1 CAPSULE 4 TIMES EACH DAY NEEDED 05/16 completed Not Available Not Available Not Available omeprazole 20 mg capsule,de layed release TAKE 1 CAPSULE 1 TIME EACH DAY 05/16 completed Not Available Not Available Not Available lisinopril 20 mg-hydroch lorothiazi de 25 mg tablet TAKE 1 TABLET 1 TIME EACH DAY active Not Available Not Available No t Available mupirocin 2 % topical ointment APPLY A THIN FILM TO THE AFFECTED AREA OF SKIN 3 TIMES EACH DAY active Not Available Not Available No t Available mirtazapin e 15 mg tablet TAKE 1 TABLET 1 TIME EACH DAY active Not Available Not Available No t Available ibuprofen 600 mg tablet TAKE ONE TABLET BY MOUTH THREE TIMES A DAY WITH FOOD NEEDED FOR PAIN AND INFLAMMA TION 04/03 completed stg 3 renal dx Not Available Not Available Not Available colchicine 0.6 mg tablet take 1 tablet (0.6 mg) by oral route 2 times per day 03/24 completed Not Available Not Available Not Available lisinopril 40 mg tablet take 1 tablet (40 mg) by oral route once daily 04/03 completed Not Available Not Available Not Available cefdinir 300 mg capsule TAKE 1 CAPSULE EVERY 12 HOURS FOR 10 DAYS 05/16 completed Not Available Not Available Not Available insulin lispro (U-100) 100 unit/mL subcutaneo us pen INJECT INSULIN 3 TIMES EACH DAY WITH MEALS. IF GLUCOSE IS 130 - 160, INJECT 2 UNITS. IF 161 - 230, INJECT 4 UNITS. IF 231 - 280, INJECT 8 UNITS. IF 281 - 340, INJECT 12 UNITS. IF 341 - 400 INJECT 15 UNITS. IF OVER 400, INJECT 17 UNITS AND CALL DOCTOR. 11/21 completed Not Available Not Available Not Available buprenorph ine 8 mg-naloxon e [address] 2 TABLETS UNDER THE TONGUE AND ALLOW TO DISSOLVE 1 TIME EACH DAY 05/16 completed Not Available Not Available Not Available insulin aspart (U-100) 100 unit/mL (3 mL) subcutaneo us pen INJECT UNDER THE SKIN 3 TIMES EACH DAY WITH MEALS. IF SUGAR IS 130-160 INJECT 2 UNITS, 161-230 INJECT 4 UNITS, 231-280 INJECT 8 UNITS, 281-340 INJECT 12 UNITS, 341-400 INJECT 15 UNITS, OVER 400 INJECT 17 UNITS AND CALL DOCTOR active Not Available Not Available No t Available tadalafil 5 mg tablet TAKE 2 TABLETS 1 TIME EACH DAY 05/16 completed Not Available Not Available Not Available duloxetine 60 mg capsule,de layed release TAKE 1 CAPSULE 1 TIME EACH DAY 05/16 completed Not Available Not Available Not Available sildenafil (pulmonary hypertensi on) 20 mg tablet take 1-5 tablets (20-100 mg) 1 hour before sexual activity 04/03 completed Not Available Not Available Not Available Januvia 100 mg tablet TAKE 1 TABLET 1 TIME EACH DAY active Not Available Not Available No t Available hydrochlor othiazide 12.5 mg tablet TAKE 1 TABLET 1 TIME EACH DAY 05/16 completed Not Available Not Available Not Available cholecalci ferol (vitamin D3) 1,250 mcg (50,000 unit) capsule Take 1 capsule every week by oral route for 90 days. 2024 active Not Available Not Available Not Avai lable Lantus Solostar U-100 Insulin 100 unit/mL (3 mL) subcutaneo us pen INJECT 40 UNITS UNDER THE SKIN 2 TIMES EACH DAY active Not Available Not Available No t Available buprenorph ine 8 mg-naloxon e [address] 2 AND 1/2 FILMS UNDER THE TONGUE AND ALLOW TO DISSOLVE 1 TIME EACH DAY 05/16 completed Not Available Not Available Not Available lancets 28 gauge use 1 lancet BID 04/03 completed Not Available Not Available Not Available Farxiga 10 mg tablet TAKE 1 TABLET 1 TIME EACH DAY active Not Available Not Available No t Available Admelog U-100 Insulin lispro 07/28 completed Medicat ionID: ''; Medicat ionName : 'ADMELO G SOLO INJ 100U/ML '; Concept Type: ''; Not Available Not Available Not Available Dexcom G6 Sensor device USE DIRECTED TO MONITOR BLOOD SUGAR. REPLACE SENSOR EVERY 10 DAYS. active Not Available Not Available No t Available Dexcom G6 Apple Packing Header USE DIRECTED TO MEASURE BLOOD SUGAR active Not Available Not Available No t Available Dexcom G6 Transmitte r device USE TO MEASURE BLOOD SUGAR DIRECTED . CHANGE TRANSMIT TER EVERY 90 DAYS. active Not Available Not Available No t Available BD Marisabel 2nd Gen Pen Needle 32 gauge x 5/32 USE TO INJECT INSULIN 2 TIMES EACH DAY active Not Available Not Available No t Available OneTouch Ultra2 Meter 04/03 completed Not Available Not Available Not Available OneTouch Delica Plus Lancet 33 gauge active Not Available Not Available Not Available insulin glargine-y fgn (U-100) 100 unit/mL (3 mL) subcutaneo us pen INJECT 40 UNITS UNDER THE SKIN 2 TIMES EACH DAY active Not Available Not Available No t Available Ozempic 2 mg/dose (8 mg/3 mL) subcutaneo us pen injector INJECT 2 MG 1 TIME EACH WEEK 11/21 completed Not Available Not Available Not Available Ozempic 0.25 mg or 0.5 mg (2 mg/3 mL) subcutaneo us pen injector INJECT 0.25 MG UNDER THE SKIN 1 TIME EACH WEEK active Not Available Not Available No t Available Vitals Date Recorded Body height Body mass index (BMI) Body weight Heart rate Oxygen saturation Oxygen saturation in Arterial blood by Pulse oximetry Systolic And Diastolic Systolic And Diastolic Systolic And Diastolic Provider Name and Address Organization Details Last Updated DateTime 5 175.26 cm 41.8 kg/m2 341525. 64 g 99 /min 93 % 93 % 199/74 mm[Hg] 176/81 mm[Hg] 144/88 mm[Hg] Rafiq Cochran [employer] 5 11:00:56 Date Recorded Body height Body mass index (BMI) Body weight Body temperature Heart rate Oxygen saturation Oxygen saturation in Arterial blood by Pulse oximetry Systolic And Diastolic Provider Name and Address Organization Details Last Updated DateTime 3 175.26 cm 37.5 kg/m2 588612. 46 g 99.5 [degF] 102 /min 98 % 98 % 135/66 mm[Hg] FATIMAH MILLER [employer] 3 11:57:38 Date Recorded Body height Body mass index (BMI) Body weight Heart rate Oxygen saturation Oxygen saturation in Arterial blood by Pulse oximetry Systolic And Diastolic Provider Name and Address Organization Details Last Updated DateTime 5 175.26 cm 37.9 kg/m2 462262. 75 g 79 /min 92 % 92 % 135/74 mm[Hg] Rafiq Cochran [employer] 5 15:56:33 Date Recorded Body height Body mass index (BMI) Body weight Heart rate Oxygen saturation Oxygen saturation in Arterial blood by Pulse oximetry Systolic And Diastolic Systolic And Diastolic Provider Name and Address Organization Details Last Updated DateTime 5 175.26 cm 37.8 kg/m2 430288. 65 g 87 /min 97 % 97 % 183/81 mm[Hg] 170/95 mm[Hg] Rafiq Cochran [employer] 5 14:12:33 Date Recorded Body height Body mass index (BMI) Body weight Body temperature Heart rate Oxygen saturation Oxygen saturation in Arterial blood by Pulse oximetry Systolic And Diastolic Provider Name and Address Organization Details Last Updated DateTime 2 175.26 cm 31.6 kg/m2 44827.7 7 g 97.3 [degF] 74 /min 99 % 99 % 120/80 mm[Hg] MAYNOR BLANCO [employer] 2 14:01:27 Social History Question Answer Notes LastModified by Organizat ion Details LastModified Time Tobacco Smoking Status Current Every Day Smoker [employer]NOR [employer] 03/25/2022 07:51:54 Do You Have An Advance Directive? No [email or web address] Information n ot available 04/03/2022 Is Your Home Air Conditioned? Yes [email or web address] Information not available 04/03/2022 Do You Wear A Helmet When Biking? No [email or web address] Information not available 04/03/2022 Are You Blind Or Do You Have Difficulty Seeing? Yes Information n ot available 04/03/2022 What Is Your Level Of Caffeine Consumption? Moderate [email or web address] Information not available 04/03/2022 In The 14 Days Before Symptom Onset, Have You Had Close Contact With A Laboratory-confirm ed COVID-19 While That Case Was Ill? No [email or web address] Information n ot available 04/03/2022 In The 14 Days Before Symptom Onset, Have You Had Close Contact With A Person Who Is Under Investigation For COVID-19 While That Person Was Ill? No [email or web address] Information not available 04/03/2022 Have You Been To An Area Known To Be High Risk For COVID-19? No [email or web address] Information not available 04/03/2022 Are You Deaf Or Do You Have Serious Difficulty Hearing? No Information not available 04/03/2022 What Type Of Diet Are You Following? REGULAR [email or web address] Information n ot available 04/03/2022 Have There Been Any Changes To Your Family Or Social Situation? No [email or web address] Information no t available 04/03/2022 Which Of Your Hands Is Dominant? Left [email or web address] Information n ot available 04/03/2022 What Is Your Home Situation? Other [email or web address] Information not available 04/03/2022 Do You Have A Medical Power Of Grit Removal Operator? No [email or web address] Information not available 04/03/2022 What Was The Date Of Your Most Recent Tobacco Screening? 02/13/2025 [email or web address] Information not available 02/13/2025 What Is Your Current Pack Years? 30ormorepacky ears ofltgvhx40 Information not available 04/03/2022 Do You Have Any Pets? No [email or web address] Information not available 04/03/2022 Do You Use Protection During Sex? No [email or web address] Information not available 04/03/2022 What Is Your Relationship Status? Other [email or web address] Information not available 04/03/2022 Do You Use Your Seat Belt Or Car Seat Routinely? No [email or web address] Information not available 04/03/2022 Are You Sexually Active? Yes [email or web address] Information not available 04/03/2022 Do You Have Any Siblings? Sister [email or web address] Information not available 04/03/2022 Do You Have Smoke And Carbon Monoxide Detectors In Your Home? No [email or web address] Information not available 04/03/2022 At What Age Did You Start Smoking Tobacco? 16 [email or web address] Information not available 04/03/2022 Are You Passively Exposed To Smoke? Yes qrtpmhde25 Information no t available 04/03/2022 Are There Any Smokers In Your House? Yes Information not available 04/03/2022 How Much Tobacco Do You Smoke? 0.5 PPD Information not available 04/03/2022 Do You Use Sunscreen Routinely? No [email or web address] Information not available 04/03/2022 How Many Years Have You Smoked Tobacco? 25 [email or web address] Information not available 04/03/2022 Have You Recently Traveled Abroad? No Information not available 04/03/2022 Do You Have Difficulty Walking Or Climbing Stairs? Yes [email or web address] Information not available 04/03/2022 Are You Currently In School? No [email or web address] Information not available 04/03/2022 Sex: Unknown Functional Status Question Answer Note LastModified by Organizat ion Details LastModified Time What is your level of alcohol consumption? None [email or web address] Information not available 04/03/2022 Are you currently employed? No fbzgteei26 Information not available 04/03/2022 Do you have transportation difficulties? Yes [email or web address] Information not available 04/03/2022 Are you able to walk independently without assistance or assistive devices? YESASSIST [email or web address] Information not available 04/03/2022 Do you have difficulty doing errands alone? Yes Information not available 04/03/2022 Are you able to care for yourself independently? Yes [email or web address] Information not available 04/03/2022 Do you have difficulty dressing, bathing, grooming, or toileting? Yes [email or web address] Information not available 04/03/2022 Mental Status Question Answer Note LastModified by Organizat ion Details LastModified Time Do you feel stressed (tense, restless, nervous, or anxious, or unable to sleep at night)? [id number] [email or web address] Information not available 04/03/2022 Do you have difficulty concentrating, remembering or making decisions? Yes [email or web address] Information no t available 04/03/2022 Are you or have you been involved with bullying? No [email or web address] Information not available 04/03/2022 Family History Relationship Description Onset Age of this Age Resolved Age Notes LastModified by Organization Details LastModified Time Unspecified Relation Family history of diabetes mellitus type 2 [email or web address] Not available 04/03 13:37:41 Unspecified Relation Family history of Hypertension [email or web address] Not available 13:37:41 Unspecified Relation Harmful pattern of use of alcohol Not available 04/03 13:37:41 Mother Depressive disorder [email or web address] Not available 04/03 13:37:41 Mother Hypertensive disorder [email or web address] Not available 04/03 13:37:41 Father Diabetes mellitus nptmkqyw21 Not available 04/03 13:37:41 Father Hypercholest erolemia [email or web address] Not available 04/03 13:37:41 Father Anxiety disorder [email or web address] Not available 04/03 13:37:41 Father Heart disease [email or web address] Not available 04/03 13:37:41 Father Hypertensive disorder [email or web address] Not available 04/03 13:37:41 Sister Asthma [email or web address] Not available 04/03/2022 13:37:41 Medical History Condition Response Diabetes Y Immunizations Vaccine Type Date Status Note Provider Nam e and Address Organization Details Recorded Time Tdap 4 completed [facility] 04/03/2022 13:38:09 Hep A, adult 9 completed MAYNOR juarez, [place] [employer] [facility] [place] 04/03/2022 13:38:09 Hep A, adult 8 completed MAYNORTHALIA [facility]arez, [facility] 04/03/2022 13:38:09 Td (adult), 2 Lf tetanus toxoid, preservative free, adsorbed 8 completed MAYNORTHALIA juarez, [place] [employer] [facility] 04/03/2022 13:38:09 Past Encounters Encounter ID Performer Location Encounter Start Date Encounter Closed Date Diagnosis/Indication Diagnosis SNOMED-CT Code Diagnosis ICD10 Code Diagnosis IMO Codes Diagnosis Note [id number] Abiola You [place] [id number] 04/03/2022 13:10:27 04/03/2022 15:32:23 Uncontrolled type 2 diabetes mellitus 789312266 E11.65 Chronic ki dney disease stage 3 434039407 N18.30 Hypertensive disorder 38 889939 I10 Neuropathy 719971049 G62 .9 Nicotine dependence 5629 4008 F17.200 Secondary erectile dysfunction 983886047 N52.1 Gastroesop hageal reflux disease without esophagitis 559060434 K21.9 Irritable bowel syndrome 14455134 K58.9 Dysthymia 95928586 F34.1 Infected u lcer of skin 1290645 L08.9 Body mass index 30+ - obesity 418795678 Z68.31 [id number] [place] [id number] 06/27/2022 11:08:07 06/27/2022 17:37:15 Acute right otitis media 857881098 H66.91 Take all the doxy as prescribed . Noncomplia nce with medication regimen 024539869 Z91.14 Cellulitis of lower limb 071932380 L03.119 Wound care explained. Inst to see his PCP in [facility], or proceed to ER for failure to improve. [id number] [place] [id number] 05/16/2024 10:12:52 05/16/2024 11:44:40 Type 2 diabetes mellitus without complication 277704078 E11.9 Fatigue 30955399 R53.83 Hyperlipidemia 23416643 E78.5 Vitamin D deficiency 347 77275 E55.9 Neuropathy 426278425 G62 .9 Gastroesop hageal reflux disease without esophagitis 224200234 K21.9 Essential hypertension 47381099 I10 Primary insomnia 5126603 F51.01 Erectile dysfunction 860 169620 F52.21 Body mass index 40+ - severely obese 113787020 Z68.41 [id number] Abiola You [place] [id number] 11/21/2024 15:38:28 11/21/2024 17:50:12 Uncontrolled type 2 diabetes mellitus 099707973 E11.65 71724738 Cellulitis of left lower limb 3026359108 7035228 L03.005 [id number] wound measured W: 5.5 cm X L: 6.5 cm, dressed with triple abx ointment, telfa and joby bandage. Pt refused wound care Body mass index 30+ - obesity 979418989 Z68.37 83151768 Noncomplia nce with treatment 7646510 Z91.199 [id number] Abiola [address] [id number] 02/13/2025 13:48:48 02/13/2025 16:20:11 Genital warts 320708437 A63.0 77074 Infectious disease 70594 004 T80.212A 03198350 possible sepsis. pt refused to go to hospital right now. refused ambulance Patient no ncompliance - general 409923352 Z91.199 [id number] Uncontroll ed type 2 diabetes mellitus 326835358 E11.65 55303595 Body mass index 30+ - obesity 632433887 Z68.37 78441013 Health Concerns Section Related Observation LastModified by Organization Detai ls LastModified Time None Recorded Concern Status LastModified by Organization Details LastModified Time None Recorded Advance Directives Directive N: Payers Insurance Date Sequence Insurance Name Policy Number Policy Colón Covered Member ID Colón Member ID Guarantor Name 05/16/2024 1 [facility] (MEDICARE REPLACEMENT/ ADVANTAGE - HMO) [id number] Philip Morgan [id number] Philip Morgan 04/27/2024 1 [place] Philip Morgan [id number] Philip Morgan 08/27/2024 1 [employer] (MEDICARE REPLACEMENT/ ADVANTAGE - PPO) [id number] Philip Morgan [id number] Philip Morgan 11/14/2024 1 *SELF PAY* To jesus Morgan 04/03/2022 1 *SELF PAY* To jesus Morgan 04/27/2024 1 [employer] (MEDICARE REPLACEMENT/ ADVANTAGE - PPO) Philip Morgan [id number] Philip Morgan 02/03/2025 MEDICARE A[place]: [facility] Philip Morgan [id number] Philip Morgan 02/10/2025 1 [employer] - DUAL ELIGIBLE (MEDICARE REPLACEMENT/ ADVANTAGE - HMO) Philip Morgan [id number] Philip Morgan 02/03/2025 2 MEDICAID-[facility] - FFS/TRADITIO NAL Philip Morgan [id number] Philip Morgan Notes Date Note Type Note Provider Name and Address Organization Details Recorded Time 04/03/20 22 text/htm l pt here today for medication refills. pt states that he hasnt had his medications in a while and he is diabetic. pt states that he hasnt had any money for medication or transportation to get his medications although pt has medicaid and lives less than 1 [address] from a pharmacy. pt states that he was doing a SS on the admelog but is unable to remember the dose. pt states that he didnt take the full dose of the basaglar either. A1C today 10.8. pt states that he eats anything that he can afford and does not follow a diabetic diet. pt states that they wont give him food stamps . i will order admelog at 7 units tid for now and basaglar 30 units bid. pt also has 3 different bp meds and today sbp is 120. i will only refill the lisinopril for today and hold the others for now. pt asks for a refill on the gabapentin. pt has not had the gabapentin filled since september and he only had it filled for 1 month. he also failed a UDS in jan 2021 and still was continued to be prescribed a controlled. pt is also prescribed suboxone. i asked pt if he has had a nerve conduction study and he states that he thinks he has but then he takes off his shoe and he has had most of bilateral feet amputated, per pt, due to non healing sores in 2018 and 2019. pt then raises his pants and he has bilateral non healing wound to both chins that are deep with redness on outer edges. i will order abx however i told pt that wounds look like they need debrided. pt did not seem concerned about it and states that he is unable to get a ride anywhere until the first of the year. i will put in an order for gen sx for possible debridement and see if opal can get transportation for pt. i dont think pt would benefit from THALIA boots and pt states that he would just take them off anyway, he has had them before. advised pt to clean daily with mild soap and water. i told pt that it is obvious that he has neuropathy and that his DM is out of control and that is why his wounds arent healing. i told pt that we would need to do a UDS today and if that came back neg and he got a note from his suboxone doc that we would talk about the gabapentin. pt then states that he has been doing meth and he wouldnt pass the UDS today. pt states if he could come in next week he could pass it because he doesnt do the meth all the time. i told pt that he would fail and that i couldnt prescribe it to him. pt appears to be very non compliant, he does not look me during the exam, pt has open sores all over his face and is continuously opening up candy and eating it during exam. pt also states that he would like to have cialis instead of viagra for ED. pt states that he was previously prescribed 100mg and he was taking 2-3 tablets because it didnt work . i highly advised pt not to take that many tablets especially in combination with meth. pt voiced understanding but seemed unconcerned. pt then starts playing a game on his phone as i am regrouping and trying to educate on diabetic diet and exercise. Abiola You APRN [address] [place] [address], [place], [phone], [facility] [employer] 04/03/2022 16:33:53 06/28/19 23 text/htm l Skin LesionReported by PatientHPIFor associated symptoms, patient reportsdrainingbut reportsno fever,no cold symptoms,no nausea,no vomiting,no diarrhea, andno urinary symptoms. For location, patient reportslegs. For quality, patient reportspainful,tender,sore, anddrainage. For severity, patient reportsmoderate. For duration, patient reportsstarted >5 year(s) ago. For onset/timing, patient reportsconstantandbecoming more symptomatic. For context, (chronic venous stasis in ble, suspect possible pad, unsure if he has had abis before.).he is s/p foot amputation remotely Ear Pain Brief HPIReported by PatientHPIFor quality, patient reportsaching painbut reportsno itching,no discharge from the ears, andno burning. For severity, patient reportsinterferes with ability to sleepbut reportsno fever,getting worse, andcurrent pain 6/10. For context, patient reportsrecent uri. For associated symptoms, patient reportsnasal congestion,nasal discharge, andsense of fullness/pressurebut reportsno vertigo,no jaw popping or clicking,no temporomandibular joint disease,no discharge from ear, andno sore throat. For location, patient reportsright. For onset/timing, patient reportsnew onset,started 1weeks ago,constant pain, andgradual onset. For duration, patient reportspain lasts ____ __.ROS as noted in the HPI States his PCP is in [facility]. Shagufta Abreu, CECILIO [address] [facility], [place], [phone], [facility] [employer], [facility]. 06/29/2022 18:30:31 05/16/19 25 text/htm l 44 year old male here to establish care and medication management. He states he left [facility] due to transportation concerns. He last was seen in Dec 2023 and is now out of refills.T2DM- States he has lost his dexcom meter so hasn't had the capability to check it in 3 months. Unsure of his last A1C but says the lowest he has gotten it was 6.5 and highest was 13. A1c 12 today. He has been non compliant with medication regimen due to this. States he only takes Januvia, and lantus and basically takes a sliding scale and takes a dose according how he feels . Doesnt take lispro or ozempic currently. states that he is afraid to take the ss insulin because he doesnt know what his glucose has been running due to him losing the dexcom and he doesnt have a glucometer. He also states he isnt able to follow diabetic diet due to finances. eating healthy is expensive . eats alot of biscuits and gravy and drinks alot of soda. We discussed ways to incorporate healthy choices into lifestyle and how this is pertinent in lowering a1c. also gave pt printed education material to take home. He also states he is unable to exercise due to broken knee since march 2020 that he chose to not have fixed. Agrees with lifestyle changes. Will plan to restart Lispro and ozempic and refill other medication and repeat labs.Neuropathy- Pt request gabapentin refill today. He last was given 7 days worth in 01/11. Last PCP did this since he wouldnt get his labs drawn. States neuropathy in BLE from DM and s/p bilateral toe amputations. Discussed typical plan of care with patient. Will plan to order NCS and follow up to show A1C improvement prior to dispensing. pt seems agravated with having to do a NCS and seems unconcerned about potential consequences (already has bilateral toes amputated). Pt agrees with planHTN- Has been without BP medication since February. Denies CP, SOA, QUINTERO, visual changes. last saw opthamology in 2022, [facility]DL per patient. WIll refill medication and educated patient to return to opthamology. Abiola You APRN [address] [facility], [place], [phone], [facility] [employer] 05/16/2024 18:19:14 11/22/19 25 text/htm l pt here today with c/o LLE wound that he has developed over the past couple of days. pt states that he has had this wound for years but got worse over the past 3 days stating seems like it popped up over night and clearly it did not. pt is a very non compliant diabetic and i havent seen pt in 7 months, so he has been out of his meds for at least 4 months. his A1C >15 (our machine couldnt read it was so high). pt declined to get labs drawn today. pt states i thought since i lost wt that my A1C would have gone down . then he goes on and on that he girlfriend keeps moving it and he cant find it. i told pt that he is a 44 yo grown man and that he needs to keep up with his own medication. on exam, LLE red, tight and swollen from just under the knee down. pt has had all toes removed from uncontrolled DM. pt has a large diabetic ulcer in the middle of LLE (see pictures taken in chart). the base is red, few black areas, green/white areas and the edges are brown and dry. just below the wound doesnt even feel like skin, it feels like leather. i advised the pt to go to the hospital so that he can get IV abx and wound care. pt declined stating that they will keep me for a week and i dont want to do that . i tried to explain possible consequences of this type of infection, pt states i know, tim had sepsis 3-4 times . told pt that if he wont go to hospital then would he do wound care in [facility] 1-2 times a week. pt declined stating that he doesnt have time to go to wound care an sit for hours . that he really didnt want to go and that he didnt have the time. i explained to pt that an oral abx is not going to help this significant wound. pt states that he has had this type of wound before and that he just needs abx. states that he has been putting paper towels on the wound and it sticks and then he has little bits of paper towel in it. pt states that he just wants an abx today and if needed he will go to the hospital. pt states that he was kicked out of home health and they will not take him back. rafiq cleaned wound and dressed with abx ointment, telfa and kurlex. i ordered oral abx and abx ointment. pt to return in 2 weeks for wound recheck. Abiola You, CECILIO [address] [facility], [place], [phone], [facility] [employer] 11/21/2024 17:39:13 02/14/20 25 text/htm l pt here today with c/o non healing sore to buttock that has been there for around 1 month. states that he has been packing it himself and he knows its getting bad because now his side and down his leg his hurting . pt was sitting on the exam table and when he got up there was drainage on the table from his wound. when he turned around to let me examine the area it was pretty significant. pt has around a quater size wound to left buttock that is around 2 inches deep (and appears to be tunneled further) with thick green drainage and some black slough. pt states i though you could just give me an abx . i tried to explain to pt that is beyond an oral abx. he is going to need to go to the hospital where he can get IV abx and probable debridement. pt states i know im not the best pt but i really dont want to go today . i asked pt what else he had to do. pt states that he had to go get his girlfriend because she wouldnt want to stay at home by herself and that he needed to go borrow some gas money from someone because he wanted to go [place] the hospital. i told pt that i can call the ambulance to take him that he needed to go today. he is probably septic and if he didnt go he would probably be very sick and would have no choice to go, by this weekend or sooner. pt states that he knows and refused the ambulance. pt also states that his girlfriend has HPV and has given him warts. states that he has some warts on the head of his penis. states that they have been there for around a month. pt states that his girlfriend did go to 1 appt for treatment but didnt go back. tried to explain potential consequences of HPV (cancers, warts that have to be burned off) pt voiced understanding but seemed unconcerned. on exam, pt has 2 small warts on the under penis just below head of penis. penis has an unclean odor with white, flaky particles. i will send in the imiquimod cream. pt is very non compliant. in apr he got all meds refilled for 3 months and A1C was 12. in nov pt came in for non healing wounds and he didnt need refills and A1C was >15. states that he hasnt taken meds for a couple of days . pt has clearly been out of meds. for this appt he no showed a few times before keeping the appt. i told pt that i know he isnt taking his meds, that he shouldnt have any left. and with uncontrolled DM this wound to his buttock is never going to heal. he needs to go to the hospital kamila. pt again asked if oral abx will take care of it. i told pt no that is why he needs to go to the hospital to get IV abx and possibly debrided. pt again refused ambulance. states that he will go home and ask someone for gas money and get his girlfriend and go to [place]. again tried to explain to pt potential consequences of untreated wound. pt states that he is aware and that he just hates going to the hospital because they want to keep you for 4-5 days . then pt states i know its my fault though and then walks out. pt has HTN. pt denies cp, soa, headaches, blurred vision, dizziness. Abiola You, CECILIO [address] [facility], [place], [phone], [facility] [employer] 02/13/2025 18:05:26
--- OUTSIDE RECORDS SUMMARY | 2025-02-21 20:11 | XMS_ITS | Continuity of Care Document ---
Author Organization [employer], [facility] Address [address] [place] [address] Assessment No assessment recorded. Plan of Treatment Reminders Order Date Submit Date Provider Last Modified By Organization Details Last Modified Time Details Appointments None recorded. Lab None recorded. Referral None recorded. Procedures None recorded. Surgeries None recorded. Imaging None recorded. Medication Orders imiquimod 5 % topical cream packet 2024 [facility] [employer], [address] [place] [address], [id number], 15:58:18 Patient TargetsNo targets recorded. Patient InstructionsNo instructions recorded. Reason for Referral None Reported. Problems Name Problem SNOMED Code Status Onset Date Resolution Date Notes Provider Name and Address Organization Details Recorded Time Uncontro lled type 2 diabetes mellitus 249688680 Active 2018 Estella juarez [employer] 5 15:59:25 Ulcer of mckeon 121500396 Completed 201803/25/2022 MAYNOR juarez [employer]. 07:50:30 Body mass index 25-29 - overweig ht 362089410 Completed 201803/25/2022 Problem Code: Z68.28; Problem Code Type: ICD-10; MAYNOR juarez [employer] 07:50:30 Body mass index 20-24 - normal 923393644 Completed 201803/25/2022 MAYNOR MENENDEZNER [employer] 2 07:50:30 Nicotine dependen ce 16969948 Active 2018 Problem Code: F17.200; Problem Code Type: ICD-10; Not Available [facility] 2 22:46:01 Body mass index 30+ - obesity 366822223 Completed 201803/25/2022 Problem Code: Z68.30; Problem Code Type: ICD-10; MAYNOR MENENDEZNER larry, [employer] 2 07:50:30 Neuropat hy due to type 1 diabetes mellitus 167500264 Completed 201809/24/2020 Problem Code: E10.40; Problem Code Type: ICD-10; Not Available [facility] 2 22:46:01 Gouty arthriti s of ankle and/or foot 759116661 Active 2018 Problem Code: M10.072; Problem Code Type: ICD-10; Not Available [facility] 2 22:46:02 Pain in limb 29629599 Completed 201803/25/2022 MAYNOR MENENDEZNER [employer] 2 07:51:00 Pain in left foot 49817754102 9107 Completed 201803/25/2022 Problem Code: M79.672; Problem Code Type: ICD-10; MAYNOR M[employer]ENDEZNER [employer] 2 07:50:30 Abscess of foot, except toe 84037708 Completed 201903/25/2022 MAYNOR MENENDEZNER larry, [employer] 2 07:50:30 Acute osteomye litis of ankle and/or foot 081719884 Completed 201903/25/2022 Problem Code: M86.172; Problem Code Type: ICD-10; MAYNOR MENENDEZNER larry, [employer] 2 07:51:00 Methicil nicholas resistan t Staphylo coccus aureus infectio n 621270423 Completed 201903/25/2022 Problem Code: A49.02; Problem Code Type: ICD-10; MAYNORTHALIA [employer] 2 07:51:00 Anemia 256332840 Active 2019 Problem Code: D64.9; Problem Code Type: ICD-10; Not Available [facility] 2 22:46:01 Hyperten sive disorder 29419613 Active 2019 Problem Code: I10; Problem Code Type: ICD-10; Not Available [facility] 2 22:46:01 Tachycar ion 2398745 Active 2019 Not Available [facility] 2 22:46:02 Acute pharyngi tis 383724383 Completed 201909/24/2020 Not Available [facility] 2 22:46:01 Non-supp urative otitis media 881501213 Completed 201903/25/2022 MAYNOR juarez, [employer] 2 07:50:30 Otogenic otalgia 18336530 Completed 201903/25/2022 MAYNORTHALIA [employer] 2 07:50:31 Harmful pattern of use of opioid 0120968 Active 2020 Problem Code: F11.10; Problem Code Type: ICD-10; Not Available [facility] 2 22:46:01 Cellulit is 152221993 Completed 202003/25/2022 Problem Code: L03.90; Problem Code Type: ICD-10; MAYNOR juarez, [employer] 2 07:50:30 Chronic kidney disease stage 3 704622997 Active 2020 Problem Code: N18.30; Problem Code Type: ICD-10; Not Available [facility] 2 22:46:02 Psychoso matic factor in physical conditio n 01016954 Active 2020 Problem Code: F54; Problem Code Type: ICD-10; Not Available [facility] 2 22:46:02 Periapic al abscess without sinus tract Completed 202003/25/2022 MAYNOR juarez, [employer] 2 07:50:30 Neuropat hy 848097764 Active 2020 Problem Code: G62.9; Problem Code Type: ICD-10; Not Available [facility] 2 22:46:01 Secondar y erectile dysfunct ion 343725262 Active 2020 Problem Code: N52.1; Problem Code Type: ICD-10; Not Available [facility] 2 22:46:04 Cough 63638570 Completed 202003/25/2022 Problem Code: R05; Problem Code Type: ICD-10; MAYNOR juarez, [employer] 2 07:51:00 Abnormal sputum 475496213 Completed 202003/25/2022 Problem Code: R09.3; Problem Code Type: ICD-10; MAYNOR juarez, [employer] 2 07:51:00 Localize d infectio n of subcutan eous tissue 372653774 Completed 202003/25/2022 MAYNOR juarez, [employer] 2 07:50:30 Noncompl iance with treatmen t 8062505 Active 2021 Problem Code: Z91.19; Problem Code Type: ICD-10; Not Available [facility] 2 22:46:04 Type 2 diabetes mellitus without complica tion 650736929 Active 2024 Estella juarez, [employer] 5 10:53:04 Hyperlip idemia 54923516 Active 2024 Abiola You, [employer] [address] [place] [address], [address] , [employer] 5 18:09:31 Gastroes ophageal reflux disease without esophagi tis 486459415 Active 2024 Abiola You, [employer] [address] [facility] [address], [place], [address] , [employer] 18:09:37 [facility] l hyperten blue 42366539 Active 2024 Abiola You, [employer] [address] [place], [address] , [employer] 18:09:39 Primary insomnia 6392582 Active 2024 Abiola You, [employer] [address] [place], [address] , [employer] 18:09:42 Erectile dysfunct ion 069969594 Active 2024 Abiola You, [employer] [address] [place], [address] , [employer] 18:09:43 Fatigue 87177121 Active 2024 Estella juarez, [employer] 10:19:51 Hypergly cemia 53153050 Active 2024 Estella Cochran Virdia, [employer] 10:19:51 Cellulit is of left lower limb 32461026794 471422 Active 2024 Estella juarez, [employer] 16:42:35 Genital warts 836483463 Active 2024 Estella juarez, [employer] 12:15:11 Notes:Some problems listed i n Document: #[id number] could not be added to this patient's chart. Please review this document and add these problems to the patient's chart manually as needed. Problem Notes None recorded. Procedures Surgical History Date Name Laterality Status Provider Name and Address Organization Details Recorded Time Other completed MAYNOR BLANCO [employer] 04/03/2022 13:37:42 Imaging Results None recorded. Procedure Notes None recorded. Medical Equipment None Reported. Allergies Allergen ID Allergen Name Allergen Category Reaction Reaction Severity Criticality Documentation Date Start Date Code Code System Note Provider Name and Address Organization Details Recorded Time 95438 Product containin g penicilli n (product) medicatio n rash moderate Not available 12/24/2021 61951 8001 SNOMED MAYNOR BLANCO larry [facility] [employer] 2 07:49:53 Medications Name Sig Start Date Stop [...] 4 TIMES EACH DAY NEEDED FOR NAUSEA 05/16 completed Not Available [...] Not Available No t Available Dexcom G6 It Compliance Analyst USE DIRECTED TO MEASURE BLOOD SUGAR active [...] Updated DateTime 5 175.26 cm 37.8 kg/m2 968042. 65 g 87 /min 97 % 97 % 183/81 mm[Hg] 170/95 mm[Hg] Estella Cochran [employer] 14:12:33 Social History Question Answer Notes LastModified by Organizat ion Details LastModified Time Tobacco Smoking Status Current Every Day Smoker MAYNOR BLANCO larry [employer] 03/25/2022 07:51:54 Do You Have An Advance Directive? No [email or web address] Information n ot available 04/03/2022 Is Your Home Air Conditioned? Yes [email or web address] Information not available 04/03/2022 Do You Wear A Helmet When Biking? No [email or web address] Information not available 04/03/2022 Are You Blind Or Do You Have Difficulty Seeing? Yes [email or web address] Information n ot available 04/03/2022 What Is Your Level Of Caffeine Consumption? Moderate Information not available 04/03/2022 In The 14 Days Before Symptom Onset, Have You Had Close Contact With A Laboratory-confirm ed COVID-19 While That Case Was Ill? No Information n ot available 04/03/2022 In The 14 Days Before Symptom Onset, Have You Had Close Contact With A Person Who Is Under Investigation For COVID-19 While That Person Was Ill? No [email or web address] Information not available 04/03/2022 Have You Been To An Area Known To Be High Risk For COVID-19? No [email or web address] Information not available 04/03/2022 Are You Deaf Or Do You Have Serious Difficulty Hearing? No [email or web address] Information not available 04/03/2022 What Type Of Diet Are You Following? REGULAR [email or web address] Information n ot available 04/03/2022 Have There Been Any Changes To Your Family Or Social Situation? No efvsfzof79 Information no t available 04/03/2022 Which Of Your Hands Is Dominant? Left [email or web address] Information n ot available 04/03/2022 What Is Your Home Situation? Other Information not available 04/03/2022 Do You Have A Medical Power Of Diet Tech? No [email or web address] Information not available 04/03/2022 What Was The Date Of Your Most Recent Tobacco Screening? 02/13/2025 [email or web address] Information not available 02/13/2025 What Is Your Current Pack Years? 30ormorepacky ears [email or web address] Information not available 04/03/2022 Do You Have Any Pets? No [email or web address] Information not available 04/03/2022 Do You Use Protection During Sex? No jirblgga47 Information not available 04/03/2022 What Is Your Relationship Status? Other memeypsf85 Information not available 04/03/2022 Do You Use Your Seat Belt Or Car Seat Routinely? No [email or web address] Information not available 04/03/2022 Are You Sexually Active? Yes ekzcsbhc86 Information not available 04/03/2022 Do You Have Any Siblings? Sister [email or web address] Information not available 04/03/2022 Do You Have Smoke And Carbon Monoxide Detectors In Your Home? No [email or web address] Information not available 04/03/2022 At What Age Did You Start Smoking Tobacco? 16 hivutplq71 Information not available 04/03/2022 Are You Passively Exposed To Smoke? Yes iteiqvnt31 Information no t available 04/03/2022 Are There Any Smokers In Your House? Yes avnigzst16 Information not available 04/03/2022 How Much Tobacco Do You Smoke? 0.5 PPD urfdgqju77 Information not available 04/03/2022 Do You Use Sunscreen Routinely? No [email or web address] Information not available 04/03/2022 How Many Years Have You Smoked Tobacco? 25 [email or web address] Information not available 04/03/2022 Have You Recently Traveled Abroad? No [email or web address] Information not available 04/03/2022 Do You Have Difficulty Walking Or Climbing Stairs? Yes pnpfhalk69 Information not available 04/03/2022 Are You Currently In School? No [email or web address] Information not available 04/03/2022 Sex: Unknown Functional Status Question Answer Note LastModified by Organizat ion Details LastModified Time What is your level of alcohol consumption? None [email or web address] Information not available 04/03/2022 Are you currently employed? No ohyqhdqx18 Information not available 04/03/2022 Do you have transportation difficulties? Yes [email or web address] Information not available 04/03/2022 Are you able to walk independently without assistance or assistive devices? YESASSIST vufmtpqx56 Information not available 04/03/2022 Do you have difficulty doing errands alone? Yes [email or web address] Information not available 04/03/2022 Are you able to care for yourself independently? Yes [email or web address] Information not available 04/03/2022 Do you have difficulty dressing, bathing, grooming, or toileting? Yes [email or web address] Information not available 04/03/2022 Mental Status Question Answer Note LastModified by Organizat ion Details LastModified Time Do you feel stressed (tense, restless, nervous, or anxious, or unable to sleep at night)? [id number] [email or web address] Information not available 04/03/2022 Do you have difficulty concentrating, remembering or making decisions? Yes xtsimvih80 Information no t available 04/03/2022 Are you or have you been involved with bullying? No ithqbqoj22 Information not available 04/03/2022 Family History Relationship Description Onset Age of this Age Resolved Age Notes LastModified by Organization Details LastModified Time Unspecified Relation Family history of diabetes mellitus type 2 [email or web address] Not available 04/03 13:37:41 Unspecified Relation Family history of Hypertension [email or web address] Not available 13:37:41 Unspecified Relation Harmful pattern of use of alcohol [email or web address] Not available 04/03 13:37:41 Mother Depressive disorder [email or web address] Not available 04/03 13:37:41 Mother Hypertensive disorder [email or web address] Not available 04/03 13:37:41 Father Diabetes mellitus vremsmgh07 Not available 04/03 13:37:41 Father Hypercholest erolemia Not available 04/03 13:37:41 Father Anxiety disorder [email or web address] Not available 04/03 13:37:41 Father Heart disease qbmpnseo72 Not available 04/03 13:37:41 Father Hypertensive disorder bahuaeyz66 Not available 04/03 13:37:41 Sister Asthma [email or web address] Not available 04/03/2022 13:37:41 Medical History Condition Response Diabetes Y Immunizations Vaccine Type Date Status Note Provider Flako santana and Address Organization Details Recorded Time Tdap 4 completed MAYNOR juarez, [place] [employer] 04/03/2022 13:38:09 Hep A, adult 9 completed MAYNOR juarez, [place] [employer] 04/03/2022 13:38:09 Hep A, adult 8 completed MAYNOR juarez, [place] [employer] 04/03/2022 13:38:09 Td (adult), 2 Lf tetanus toxoid, preservative free, adsorbed 8 completed MAYNOR juarez, [place] [employer] 04/03/2022 13:38:09 Past Encounters Encounter ID Performer Location Encounter Start Date Encounter Closed Date Diagnosis/Indication Diagnosis SNOMED-CT Code Diagnosis ICD10 Code Diagnosis IMO Codes Diagnosis Note [id number] Abiola Avelino [address] [address] 02/13/2025 13:48:48 02/13/2025 16:20:11 Genital warts 155287217 A63.0 07467 Infectious disease 39058 004 T80.212A 78735102 possible sepsis. pt refused to go to hospital right now. refused ambulance Patient no ncompliance - general 450433191 Z91.199 213129 Uncontroll ed type 2 diabetes mellitus 644811920 E11.65 41426154 Body mass index 30+ - obesity 287682657 Z68.37 42202392 Health Concerns Section Related Observation LastModified by Organization Detai ls LastModified Time None Recorded Concern Status LastModified by Organization Details LastModified Time None Recorded Payers Encounter Date Sequence Insurance Name Policy Number Policy Colón Covered Member ID Colón Member ID Guarantor Name 02/13/2025 1 [employer] - DUAL ELIGIBLE (MEDICARE REPLACEMENT/ ADVANTAGE - HMO) Philip Morgan [id number] Philip Morgan 02/13/2025 2 MEDICAID-[facility] - FFS/TRADITIO NAL Philip Morgan [id number] Philip Morgan Notes Date Note Type Note Provider Name and Address Organization Details Recorded Time 02/13/2025 text/html pt here today with c/o non healing [...] someone [place] i told pt that [...] that his girlfriend did go to [facility] for treatment but didnt go back. tried [...] and get his girlfriend and go to [place]. again tried to explain to pt potential consequences of untreated wound. pt states that he is aware and that he just hates going to the hospital because they want to keep you for 4-5 days . then pt states i know its my fault though and then walks out. pt has HTN. pt denies cp, soa, headaches, blurred vision, dizziness. Abiola You APRN [address] [facility] [address], [place], [address], [facility] [employer] 02/13/2025 18:05:26
[2025-02-21 20:48] VITALS: RESP 18
[2025-02-21] MEDS: MORPHINE 2MG/ML SYRINGE 2 MG IV (20:52)
[2025-02-21] MEDS: ONDANSETRON 4MG/2ML VIAL 4 MG IV (20:52)
[2025-02-21 21:00] VITALS: BP 147/69; PULSE 68; RESP 16; O2SAT 91
[2025-02-21 21:03] LABS: Hematocrit 32.2 % (42.0-52.0); Hemoglobin 10.1 g/dL (14.1-18.0); Immature Granulocytes % 0.5 %; Mean Corpuscular HGB Conc 31.4 g/dL (31.8-35.4); Mean Corpuscular Hemoglobin 22.9 pg (27.0-31.2); Mean Corpuscular Volume 73.0 fl (80-94); Nucleated Red Blood Cells % 0 %; Platelet Count 366 K/mm3 (142-424); Red Blood Count 4.41 M/mm3 (4.60-6.20); Red Cell Distribution Width-SD 38.0 fL; White Blood Count 6.4 K/mm3 (4.8-10.8)
[2025-02-21 21:07] LABS: VBG HCO3 26.8 mmol/L (23-30); VBG PCO2 52.7 mmol/L (35-51); VBG PH 7.32 mmol/L (7.31-7.41); VBG PO2 45.7 mmol/L (28-40)
[2025-02-21 21:07] LABS: Albumin Level 3.8 g/dl (3.5-5.0); Chloride 97 mmol/L (98-107); Potassium 4.5 mmoL/L (3.5-5.1); Sodium 134 mmol/L (136-145)
[2025-02-21 21:09] LABS: Lactate Venous 2.5 mmol/L (0.4-2.0)
[2025-02-21 21:10] LABS: Alanine Aminotransferase 20 U/L (12-78); Albumin/Globulin Ratio 1.0 (1.1-1.8); Alkaline Phosphatase 173 U/L (38-126); Anion Gap 11.5 mEq/L (5-15); Aspartate Amino Transferase 23 U/L (17-59); Bilirubin,Total 0.2 mg/dl (0.2-1.3); Blood Urea Nitrogen 20 mg/dl (9-20); Calcium 8.4 mg/dl (8.4-10.2); Carbon Dioxide 30 mmol/L (22.0-30.0); Creatinine Clearance Estimated 115 mL/min (50-200); Creatinine,Serum 1.30 mg/dl (0.66-1.25); Estimated Glomerular Filt Rate 60 ml/min (>60); GFR (African American) 73 ML/MIN (>60); Globulin 3.8 g/dL (1.3-3.2); Glucose 338 mg/dl (74-100); Total Protein,Serum 7.6 g/dl (6.3-8.2)
[2025-02-21 21:26] LABS: Troponin I < 0.01 ng/ml (0.00-0.034)
[2025-02-21 21:34] LABS: Creatine Kinase 43 U/L (55-170)
[2025-02-21 21:44] LABS: NT Pro Brain Natriuretic Pep. 857 pg/mL (0-125)
--- NOTE | 2025-02-21 22:19 | PC.NURSE ---
Radiology notified about new IV
[2025-02-21] MEDS: SODIUM CHLORIDE 0.9% 10ML SYR (RAD ONLY) 10 ML IV (22:24)
[2025-02-21] MEDS: IOPAMIDOL-370 (76%);100ML BOTTLE 75 ML IV (22:24)
[2025-02-21] MEDS: AMOXICILLIN/CLAVULANATE POTASSIUM 875/125MG TABLET 1 EACH PO (23:31)
[2025-02-21] MEDS: SULFA/TRIMETHOPRIM 1 TABLET 1 EACH PO (23:31)
[2025-02-21 23:33] VITALS: BP 128/93; PULSE 71; RESP 17; TEMP 36.8; O2SAT 96
[2025-02-22 01:09] LABS: Reflex Lactic Add Lactic Reflex
== END 2025-02-21 23:40 | disposition home or self-care (01) ==
PROVIDERS: Physician Assistant; Emergency Provider Student in an Organized Health Care Education/Training Program; PCP Nurse Practitioner
DX: L98.428 Non-pressure chronic ulcer of back with other specified severity (principal); E11.622 Type 2 diabetes mellitus with other skin ulcer; R74.02 Elevation of levels of lactic acid dehydrogenase [LDH]; R11.2 Nausea with vomiting, unspecified; R79.89 Other specified abnormal findings of blood chemistry; F17.210 Nicotine dependence, cigarettes, uncomplicated; E11.65 Type 2 diabetes mellitus with hyperglycemia
CPT/HCPCS: 71045; 74177; 80053; 82550; 82803; 83605; 83880; 84484; 85025; 87040; 93005; 96374; 96375; 99285; J2270; J2405; Q9967